=== PATIENT | male | born 1955 | race Caucasian/White ===

== ENCOUNTER 2018-04-25 20:49 | Emergency (ER) | payer OTHER ==
[2018-04-25 21:14] VITALS: BP 140/82
--- NOTE | 2018-04-25 21:37 | EDM.PDOC ---
ED HPI GENERAL MEDICAL PROBLEM - General Chief Complaint: General Stated Complaint: dull headache in neck; finger tips numb Time Seen by Provider: 04/25/18 21:37 Source of Information: Reports: Patient History Limitations: Reports: No Limitations - History of Present Illness INITIAL COMMENTS - FREE TEXT/NARRATIVE: pt has tenderness and pain in the rt side of the neck and numbness in the tips of the rt hand-- in the fingers. He has no weakness in the rt hand. He does not have a haeadache. He states the pain started about 1 week ago, Onset: Other ( about 1 week ago. ) Duration: Hour(s): Location: Reports: Neck, Upper Extremity, Right Associated Symptoms: Reports: No Other Symptoms right side of neck Pain Score (Numeric/FACES): 5 - Related Data Allergies Allergy/AdvReac Type Severity Reaction Status Date / Time shellfish Allergy Mouth Sores Uncoded 04/25/18 21:30 Home Meds: Home Meds NK [No Known Home Meds] 07/24/14 [History] Social & Family History - Tobacco Use Smoking Status *Q: Never Smoker - Caffeine Use Caffeine Use: Reports: Coffee - Recreational Drug Use Recreational Drug Use: No ED ROS GENERAL - Review of Systems Review Of Systems: See Below Constitutional: Reports: No Symptoms HEENT: Reports: No Symptoms, Other ( pain in the rt side of the neck) Respiratory: Reports: No Symptoms Cardiovascular: Reports: No Symptoms Endocrine: Reports: No Symptoms GI/Abdominal: Reports: No Symptoms : Reports: No Symptoms Musculoskeletal: Reports: Other ( numbness in the rt tips of the finger extending up into the hand. ) Neurological: Reports: Tingling Psychiatric: Reports: Anxiety ED EXAM, GENERAL - Physical Exam Exam: See Below Free Text/Narrative:: pt arrived with pain in the rt side of his neck. He has not had dizziness, or headaches. He has had numbness in the rt fingers. He has notrmal strength. He does not feel he has had a injury. Exam Limited By: No Limitations General Appearance: Alert, Anxious, Mild Distress Ears: Normal TMs Nose: Normal Inspection Throat/Mouth: Normal Inspection Head: Atraumatic Neck: Other (pt has miscle spasm and tenderness over the trapezeus area. He has bilateral equal carotids with no bruits. ) Respiratory/Chest: No Respiratory Distress Cardiovascular: Regular Rate, Rhythm GI/Abdominal: Soft, Non-Tender (Male) Exam: Deferred Rectal (Males) Exam: Deferred Back Exam: Normal Inspection Extremities: Other ( normal strength bilateral. ) Neurological: Alert, Oriented, Normal Cognition Psychiatric: Normal Affect Course - Vital Signs Last Recorded V/S: Last Vital Signs Temp 36.1 C 04/25/18 21:31 Pulse 75 04/25/18 21:31 Resp 16 04/25/18 21:31 BP 140/82 04/25/18 21:31 Pulse Ox 96 04/25/18 21:31 - Orders/Labs/Meds Orders: Active Orders 24 hr Category Date Time Status Head wo Cont [CT] Stat Exams 04/25/18 22:02 Ordered Departure - Departure Time of Disposition: 23:23 Disposition: Home, Self-Care 01 Condition: Fair Clinical Impression: Degenerative cervical disc, Muscle spasm - Discharge Information Referrals: Mau Stiles MD [Primary Care Provider] - Forms: ED Department Discharge Care Plan Goals: Moist warm packs to the post cervical on the rt, flexeril 10mg hs to relax muscles, ibuprofen 400mg tid for discomfort, If persistent symptoms follow up with Dr Stiles and have Physical therapy set up. - My Orders Last 24 Hours: My Active Orders 04/25/18 22:02 Head wo Cont [CT] Stat - Assessment/Plan Last 24 Hours: My Active Orders 04/25/18 22:02 Head wo Cont [CT] Stat
--- NOTE | 2018-04-25 23:03 | CRLCT ---
INDICATION: Right neck pain, right extremity numbness TECHNIQUE: CT cervical spine without contrast. COMPARISON: None FINDINGS: Vertebral alignment: Alignment is normal. Vertebrae: There are no fractures or suspicious bony lesions. Discs and facet joints: There are degenerative disc changes at C5-6 and C6-7. There are multilevel degenerative changes in the facets. Extraspinal findings: Paraspinous soft tissues are unremarkable. IMPRESSION: 1. No sign of acute injury. 2. Multilevel degenerative spondylosis. Please note that all CT scans at this facility use dose modulation, iterative reconstruction, and/or weight-based dosing when appropriate to reduce radiation dose to as low as reasonably achievable. Dictated by Dayan Atkinson MD @ Apr 25 2018 10:56PM Signed by Dr. Dayan Atkinson @ Apr 25 2018 11:02PM
--- NOTE | 2018-04-26 14:14 | CRLCT ---
INDICATION: Right neck pain and numbness and right extremity TECHNIQUE: Head CT without contrast. COMPARISON: None FINDINGS: CSF spaces: Within normal limits for age. Brain parenchyma: There are nonspecific, mild low attenuation white matter changes consistent with chronic microvascular disease. No sign of mass, hemorrhage, or midline shift. Skull base and calvarium: The visualized paranasal sinuses and mastoid air cells demonstrate no acute or significant findings. The visualized orbits are grossly unremarkable. No skull fractures. IMPRESSION: 1. No acute findings. 2. Nonspecific, mild white matter disease, typical of chronic microvascular disease. Please note that all CT scans at this facility use dose modulation, iterative reconstruction, and/or weight-based dosing when appropriate to reduce radiation dose to as low as reasonably achievable. Dictated by Dayan Atkinson MD @ Apr 25 2018 11:02PM (Electronic Signature) MTDD
== END 2018-04-25 23:30 | disposition home or self-care (01) ==
LOC: JP.ED 20:49
DX: M50.30 Other cervical disc degeneration, unspecified cervical region (principal); Z91.013 Allergy to seafood
CPT/HCPCS: 70450; 72125; 99283; 99284-25

== ENCOUNTER 2021-06-30 07:11 | Day surgery (SDC) | payer OTHER ==
[2021-06-30] MEDS ORDERED: Midazolam 1 MG/ML 2 ML SDV ONE (07:31)
[2021-06-30] MEDS ORDERED: fentaNYL 100 MCG/2 ML SDV ONE (07:31)
[2021-06-30] MEDS ORDERED: Propofol 200 MG/20 ML SDV ONE (07:31)
[2021-06-30] MEDS ORDERED: Sodium Chloride 0.9% 1,000 ML IV SCH (08:00)
[2021-06-30 10:14] VITALS: BP 133/75; PULSE 63
== END 2021-06-30 10:31 | disposition home or self-care (01) ==
LOC: JP.SDS 07:11
PROVIDERS: ATTEND Surgery
DX: Z12.11 Encounter for screening for malignant neoplasm of colon (principal); K63.5 Polyp of colon; K57.30 Diverticulosis of large intestine without perforation or abscess without bleeding; K56.2 Volvulus
CPT/HCPCS: 45380; 88305; J2250; J2704; J3010; J7030